=== PATIENT | female | born 1935 | race Two or more races ===

== ENCOUNTER 2017-06-16 18:48 | Emergency (ER) | payer SELFPAY ==
[~2017-06-16] VITALS: Ht 144.8 cm; Wt 51.7 kg
[2017-06-16] MEDS ORDERED: cloNIDine HCL 0.1 MG TAB ONE (19:14)
[2017-06-16 19:24] VITALS: BP 200/47
[2017-06-16] MEDS ORDERED: cloNIDine HCL 0.1 MG TAB PO ONE (19:30)
[2017-06-16 19:56] LABS: Basophils # (auto) 0 uL; Basophils % (auto) 0.4 % (0.0-2.0); CONDITION Y; Eosinophils # (auto) 0.1 uL; Eosinophils % (auto) 1.3 % (0.0-7.0); Hematocrit 32.5 % (36.0-46.0); Hemoglobin 10.9 g/dL (12.2-16.2); Lymphocytes # (auto) 1.5 uL; Lymphocytes % (auto) 16.3 % (10.0-50.0); Mean Corpuscular Hemoglobin 31.8 pg (28.0-32.0); Mean Corpuscular Hgb Conc. 33.6 g/dL (32.0-36.0); Mean Corpuscular Volume 94.7 fL (80.0-100.0); Mean Platelet Volume 9.4 fL (6.9-10.8); Monocytes # (auto) 1.1 uL; Monocytes % (auto) 12.3 % (0.0-12.0); Neutrophils # (auto) 6.4 uL; Neutrophils % (auto) 69.7 % (37.0-80.0); Platelet Count (auto) 124 10^3/uL (140-450); Red Cell Distribution Width 14.1 % (11.8-14.3); White Blood Cell 9.2 10^3/uL (4.4-10.8)
[2017-06-16 20:10] LABS: INR 1.1 (0.9-1.15); Partial Thromboplastin Time 24.5 sec (22.64-33.71)
[2017-06-16 20:30] LABS: BUN/Creatinine Ratio 29.6; Bilirubin, Total 0.7 mg/dL (0.2-1.0); Calcium 8.1 mg/dL (8.5-10.1); Magnesium 2.5 mg/dL (1.6-2.6); Potassium 3.8 mmol/L (3.5-5.1)
== END 2017-06-16 20:53 | disposition left against medical advice (07) ==
LOC: ER 18:56
DX: R42 Dizziness and giddiness (principal); R10.9 Unspecified abdominal pain; R05 Cough; Z53.21 Procedure and treatment not carried out due to patient leaving prior to being seen by health care provider
CPT/HCPCS: 36415; 71020; 74176; 80053; 82150; 83690; 83735; 84484; 85025; 85610; 85730; 93005; J7030